=== PATIENT | female | born 1960 | race Caucasian/White ===

== ENCOUNTER 2016-11-24 06:10 | Observation (INO) | payer BC, MEDICARE ==
[2016-11-14 10:08] LABS: HEMATOCRIT 38.7 % (36.0-48.0); HEMOGLOBIN 13.1 g/dL (12.0-16.0)
[2016-11-14 10:24] LABS: BUN (BLOOD UREA NITROGEN) 12 MG/DL (6-23); CALCIUM, SERUM 8.4 MG/DL (8.5-10.4); CHLORIDE, SERUM 106 MMOL/L (96-112); CREATININE 1.04 MG/DL (0.55-1.02); GFR AFRICAN AMERICAN 69 ML/MIN (>=60); GFR NON AFRICAN AMERICAN 59 ML/MIN (>=60); POTASSIUM, SERUM 4.2 MMOL/L (3.5-5.3); SODIUM, SERUM 142 MMOL/L (135-148)
[2016-11-14 10:25] LABS: CO2 (CARBON DIOXIDE) 25 MMOL/L (24-34); GLUCOSE, SERUM 250 MG/DL (60-99)
--- NOTE | ~2016-11-24 | OP ---
Record Of Operation [facility] [address] [place]. [address] NAME: ABBEY LUJAN : 56 STATUS : DIS IN PAT#: [id number] AGE: 56 ADM/REG DATE : 11/24/16 MR#: [id number] REPORT SERV DATE: 11/25/16 DICTATED BY: ION KENNEDY II DATE: 11/25/16 REPORT STATUS : Draft TRANSCRIBED BY: MODL DATE: 11/25/16 DATE OF PROCEDURE: 11/24/2016 PREOPERATIVE DIAGNOSES: 1. Right upper extremity radiculopathy. 2. Stenosis, C5-6, C6-7. 3. Neck pain. POSTOPERATIVE DIAGNOSES: 1. Right upper extremity radiculopathy. 2. Stenosis, C5-6, C6-7. 3. Neck pain. PROCEDURES: 1. C5-6, C6-7 anterior interbody arthrodesis. 2. Application of prosthetic devices, C5-6, C6-7. 3. Use of anterior instrumentation, C5-6, C6-7. 4. Bone marrow aspirate. 5. Use of allograft substitute. SURGEON: Ion Kennedy M.D. FLUIDS: One liter of lactated Ringer's. ESTIMATED BLOOD LOSS: 15 mL. DRAINS: One drain. COMPLICATIONS: None. ANTIBIOTIC: Preoperatively. PREOPERATIVE HISTORY: This is a very friendly 56-year-old female, who reports pain in the neck worse with extension and rotation with primary pain radiating into the right periscapular region and into the arm consistent with radiculopathy. We discussed the pros and cons of continuing nonoperative care versus surgery. The surgical approach was discussed as was the risks and benefits of the surgery. We felt that she had failed conservative care and she wished to proceed with surgery. DESCRIPTION OF PROCEDURE: After informed consent was obtained, the patient was brought to the operating room at her request and general anesthesia achieved. She was placed in the supine position and the neck and iliac crest were prepped and draped in a sterile fashion. The 5 mL of bone marrow were aspirated from the iliac crest followed by a right-sided longitudinal incision. The interval was explored and the deep cervical fascia incised. The char belt operator retractors were placed underneath the longus colli muscles. The [place] pins were now placed and the microscope brought into place. Under microscopic visualization, the Record Of Operation [facility] [address] [place]. [address] NAME: ABBEY LUJAN : 56 STATUS : DIS IN PAT#: [id number] AGE: 56 ADM/REG DATE : 11/24/16 MR#: [id number] REPORT SERV DATE: 11/25/16 DICTATED BY: ION KENNEDY II DATE: 11/25/16 REPORT STATUS : Draft TRANSCRIBED BY: MODL DATE: 11/25/16 diskectomy was performed at C5-6. The endplates were prepared with the high-speed bur and the Kerrison rongeurs and the curettes. The posterior vertebral body osteophytes were now removed. The foraminal osteophytes were compressing the exiting nerve roots. The posterior longitudinal ligament was now removed to fully ensure the adequacy of the decompression. At this point, the prosthetic device was chosen. A bone marrow aspirate and allograft substitute were placed within the prosthetic device and then the prosthetic device well placed at C5-6. The C6-7 level was now addressed in a similar manner. The diskectomy was completed and the endplates prepared. The posterior vertebral body osteophytes were now removed. The posterior longitudinal ligament was now removed with the Kerrison rongeurs. The exiting nerve roots were now decompressed under direct and microscopic visualization. The prosthetic device was then well placed at C6-7. The [place] pins were now removed. The anterior fixation device was placed with two screws in the C5, C6, and C7. Multiplanar imaging confirmed acceptable placement of the implants. The area was found to be hemostatic. A standard closure was then performed over a drain. The patient was then extubated and transferred to PACU in stable condition. [place] Ion Kennedy II, M.D. / [id number] CC: Lori Davis II, M.D.
[~2016-11-24 06:10] MED LIST: ALLEGRA180 PO; ALLERGY INJECTIONS SC; AMARYL2 PO; ASAB PO; ASMANEX INH; ATROVENTUD INH; CHOLESTEROL RX PO; COREG6 PO; COZAAR100 MG PO; CYMBALTA30 PO; CYMBALTA60 PO; DSS PO; DULERA 100 MCG/13 GM INH; DULERA 200 MCG/13 GM INH; DULERA INHALER INH; EFFEXXR75 PO; ENDOCET1 TAB PO; ESTRADIOL1 MG PO; FLEX PO; GYNODIOL2 MG PO; KLONO1 PO; KOMBIGLYZE XR1 EAC1 PO; L40 PO; LACT30UDL PO; LANTUS SC; LEVOTHROID25 MCG PO; LIPITOR20 PO; LIPITOR40 PO; LISINOPRIL40 MG PO; MICRO-K10 MEQ PO; MIRALAX POWDER1 PKT PO; MIRALAXPKT PO; MSCONT15 PO; NAP500 PO; NEUR300 PO; PCET PO; PERCOCET1 TA4 PO; PR25 PO; PRILOSEC40 MG PO; PRIN20 PO; PROAIR HFA INH; PROTONIX PO; REG PO; SINGULAIR1 PO; SYN.025B PO; TRAZODONE150 MG PO; ULTRAM50 PO; ZANAFLEX2 MG PO; ZOFRAN4 PO; ZOFRANODT8 PO
[2016-11-25] MEDS ORDERED: DIL2TAB PO (11:20)
[2016-11-25] MEDS ORDERED: V2 PO (11:20)
== END 2016-11-25 12:02 | disposition home or self-care (01) ==
LOC: SDC 06:10 → 3SO 14:16
PROVIDERS: Orthopaedic Surgery
PROC: 0RG20K0 Fusion of 2 or more Cervical Vertebral Joints with Nonautologous Tissue Substitute, Anterior Approach, Anterior Column, Open Approach (ICD-10-PCS; 2016-11-24)
PROC: 0RG20J0 Fusion of 2 or more Cervical Vertebral Joints with Synthetic Substitute, Anterior Approach, Anterior Column, Open Approach (ICD-10-PCS; 2016-11-24)
PROC: 0RB30ZZ Excision of Cervical Vertebral Disc, Open Approach (ICD-10-PCS; 2016-11-24)
PROC: 079T3ZX Drainage of Bone Marrow, Percutaneous Approach, Diagnostic (ICD-10-PCS; 2016-11-24)
PROC: 0RG20A0 Fusion of 2 or more Cervical Vertebral Joints with Interbody Fusion Device, Anterior Approach, Anterior Column, Open Approach (ICD-10-PCS; principal; 2016-11-24 08:00)
DX: M48.02 Spinal stenosis, cervical region (principal); M50.122 Cervical disc disorder at C5-C6 level with radiculopathy; G47.33 Obstructive sleep apnea (adult) (pediatric); K21.9 Gastro-esophageal reflux disease without esophagitis; E78.5 Hyperlipidemia, unspecified; I10 Essential (primary) hypertension; E03.9 Hypothyroidism, unspecified; J44.9 Chronic obstructive pulmonary disease, unspecified; I25.10 Atherosclerotic heart disease of native coronary artery without angina pectoris; G43.909 Migraine, unspecified, not intractable, without status migrainosus; J45.909 Unspecified asthma, uncomplicated; M19.90 Unspecified osteoarthritis, unspecified site; E11.43 Type 2 diabetes mellitus with diabetic autonomic (poly)neuropathy; K31.84 Gastroparesis; F32.9 Major depressive disorder, single episode, unspecified; Z88.5 Allergy status to narcotic agent; Z88.8 Allergy status to other drugs, medicaments and biological substances; Z79.82 Long term (current) use of aspirin; Z79.899 Other long term (current) drug therapy; Z90.710 Acquired absence of both cervix and uterus; Z98.51 Tubal ligation status; Z98.890 Other specified postprocedural states; Z82.61 Family history of arthritis; Z83.3 Family history of diabetes mellitus; Z82.49 Family history of ischemic heart disease and other diseases of the circulatory system; Z87.891 Personal history of nicotine dependence; Z90.49 Acquired absence of other specified parts of digestive tract; Z90.722 Acquired absence of ovaries, bilateral
CPT/HCPCS: 80048; 82962; 85014; 85018; 87641; 88304; 88311; 93005; 96374; 96376; A9270-GY; C1713; G0378; J0330; J0690; J2250; J2270; J2370; J2405; J2710; J3010